=== PATIENT | male | born 1970 | race Caucasian/White ===

== ENCOUNTER 2023-01-18 11:16 | Emergency (ER) | payer BC, SELFPAY ==
[2023-01-18 11:31] VITALS: BP 123/98; PULSE 85; RESP 16; TEMP 36.6; O2SAT 100
--- NOTE | 2023-01-18 11:56 | ED.URI ---
HPI - URI/Sore Throat General Chief Complaint: Upper Respiratory Infection Stated Complaint: upper respiratory Source: patient and RN notes reviewed History of Present Illness HPI Narrative: 52 yo M presents to urgent care with complaints of a cough x 1 week. Pt states he has intermittent congestion. Pt reports most of his cough is dry and it feels like he has something to cough up but can't. Denies any fevers, chills, ear pain, chest pain, SOB, vomiting, or diarrhea. Pt has been taking Dayquil with minimal relief. Related Data Home Medications Medication Instructions Recorded Confirmed celecoxib 200 mg capsule 200 mg PO DAILY 01/18/23 01/18/23 duloxetine 30 mg capsule,delayed 30 mg PO DAILY 01/18/23 01/18/23 release simvastatin 20 mg tablet 20 mg PO DAILY 01/18/23 01/18/23 Allergies Allergy/AdvReac Type Severity Reaction Status Date / Time No Known Allergies Allergy Verified 01/18/23 11:55 Review of Systems Review of Systems: Pertinent positives and pertinent negatives per HPI. PMFSH Comments At the time of my signature, I reviewed and agree with the nursing past medical, surgical, social, and family history. There is no relevant family history pertinent to the patient complaint. Exam Narrative: GENERAL: This is a well-nourished, well-developed patient, in no apparent distress. HEAD: normocephalic, atraumatic. EYES: Sclera clear/white. Vision is grossly intact. EARS: External ears normal, auditory canals clear and without drainage, TMs normal without perforation. Hearing grossly intact. NOSE: External nose normal with no obvious nasal discharge, nares without redness, no rhinorrhea. THROAT: Mucous membranes moist, posterior pharynx clear. NECK: Neck supple, non-tender without lymphadenopathy, masses or thyromegaly. CARDIOVASCULAR: Regular rate and rhythm without murmurs, gallops, or rubs. RESPIRATORY: Rhonchi and wheezing noted bilaterally on auscultation SKIN: warm, intact with no suspicious lesions or rash, good texture and turgor. NEURO: awake, alert, and oriented to person, place and time. There were no obvious focal neurologic abnormalities. Course Course Level of Care: Express Care Visit Vital Signs Vital signs: Vital Signs Temperature 97.9 F 01/18/23 11:31 Pulse Rate 85 01/18/23 11:31 Respiratory Rate 16 01/18/23 11:31 Blood Pressure 123/98 H 01/18/23 11:31 Pulse Oximetry 100 01/18/23 11:31 Temperature 97.9 F 01/18/23 11:31 Pulse Rate 85 01/18/23 11:31 Respiratory Rate 16 01/18/23 11:31 Blood Pressure 123/98 H 01/18/23 11:31 Pulse Oximetry 100 01/18/23 11:31 reviewed MDM - URI/Sore Throat MDM Narrative Medical decision making narrative: Take steroids as directed. May use the inhaler every 4-6 hours as needed for coughing. Increase fluids at home. Avoid any and all smoke. May use a humidifier in the bedroom. Increase your Vitamin C. Follow-up with personal physician in 2-5 days. Differential Diagnosis Differential diagnosis: Likely upper respiratory infection, bronchitis and other ( Pneumonia) Critical Care Time Critical Care Time Critical Care Time: No Discharge Plan Discharge Clinical Impression: Bronchitis Patient Disposition: Home, Self-Care Condition: Stable Instructions: Antibiotic Form, Acute Bronchitis (ED) Additional Instructions: Take steroids as directed. May use the inhaler every 4-6 hours as needed for coughing. Increase fluids at home. Avoid any and all smoke. May use a humidifier in the bedroom. Increase your Vitamin C. Follow-up with personal physician in 2-5 days. Prescriptions: New azithromycin [Zithromax Z-Eduardo] 250 mg tablet 250 mg PO DAILY 5 Days Qty: 5 0RF Rx Instructions: Take 500 mg on Day 1, 250 mg on Days 2-5. prednisone 20 mg tablet 40 mg PO DAILY 5 Days Qty: 10 0RF albuterol sulfate 90 mcg/actuation HFA aerosol inhaler 2 puff inhalation QID PRN (Re
== END 2023-01-18 12:00 | disposition home or self-care (01) ==
PROVIDERS: Emergency Provider Nurse Practitioner Family
DX: J40 Bronchitis, not specified as acute or chronic (principal); E78.00 Pure hypercholesterolemia, unspecified; M19.90 Unspecified osteoarthritis, unspecified site
CPT/HCPCS: 99213; G0463